=== PATIENT | female | born 1990 | race Caucasian/White ===

== ENCOUNTER 2018-10-23 12:03 | Emergency (ER) | payer SELFPAY ==
--- NOTE | 2018-10-23 13:22 | UC ---
Abdominal Pain Female HPI - HPI Summary HPI Summary: Pt resents with c/o of right side LQ pain,that began 3 days ago. Pt states that abdominal pain began at "bellybutton" ~ 3 days ago and now is painful in RLQ. Pt has hx of ovarian cysts, has nexplanon, denies injury/ Unsure of last BM , states she is "burping" more than usual and is not passing flatus per norm. Pt also reports mild nausea but no vomiting. - History of Current Complaint Chief Complaint: UCAbdominalPain Stated Complaint: RT SIDED ABD PAIN Time Seen by Provider: 10/23/18 13:12 Hx Obtained From: Patient Hx Last Menstrual Period: nexplanon ?: No Onset/Duration: Gradual Onset, Lasting Days, Still Present Timing: Constant Severity Initially: Mild Severity Currently: Severe Pain Intensity: 8 Location: Discrete At: RLQ Radiates: No Aggravating Factor(s): Movement Alleviating Factor(s): Nothing Associated Signs and Symptoms: Positive: Constipation, Nausea - Risk Factors Ectopic Risk Factor: Negative Ovarian Torsion Risk Factor: Reproductive Age, Ovarian Cysts/Tumors Allergies/Adverse Reactions: Allergies Allergy/AdvReac Type Severity Reaction Status Date / Time povidone-iodine Allergy Hives Verified 10/23/18 12:22 [From Betadine] soap [From Betadine] Allergy Hives Verified 10/23/18 12:22 Home Medications: Home Medications Etonogestrel [Nexplanon] 68 mg IMPLANT 10/23/18 [History] PMH/Surg Hx/FS Hx/Imm Hx Previously Healthy: Yes - Surgical History Surgical History: Yes Surgery Procedure, Year, and Place: 3 c-sections, disectomy?, lt oopherectomy and lt salpenjectomy - Family History Known Family History: Positive: Cardiac Disease - Social History Lives: With Family Alcohol Use: None Substance Use Type: None Smoking Status (MU): Never Smoked Tobacco Have You Smoked in the Last Year: No Review of Systems All Other Systems Reviewed And Are Negative: Yes Constitutional: Positive: Negative Skin: Positive: Negative Eyes: Positive: Negative ENT: Positive: Negative Respiratory: Positive: Negative Cardiovascular: Positive: Negative Gastrointestinal: Positive: Abdominal Pain, Nausea Genitourinary: Positive: Negative Motor: Positive: Negative Neurovascular: Positive: Negative Musculoskeletal: Positive: Negative Neurological: Positive: Negative Psychological: Positive: Negative Is Patient Immunocompromised?: No Physical Exam Triage Information Reviewed: Yes Appearance: Pain Distress Vital Signs: Initial Vital Signs Temp 98.8 F 10/23/18 12:16 Pulse 58 10/23/18 12:16 Resp 18 10/23/18 12:16 BP 129/87 10/23/18 12:16 Pulse Ox 97 10/23/18 12:16 Vital Signs Reviewed: Yes Eye Exam: Normal ENT: Positive: Hearing grossly normal Neck exam: Normal Respiratory Exam: Normal Cardiovascular Exam: Normal Abdomen Description: Positive: McBurney's Point Tenderness Bowel Sounds: Positive: Hypoactive Musculoskeletal Exam: Normal Neurological Exam: Normal Psychological Exam: Normal Skin Exam: Normal Abd Pain Female Course/Dx - Course Course Of Treatment: Pt was recommended to go directly to ER by ambulance as pt stated she did not have a ride. Ambulance arrived, and pt declined ambulance and stated that she now had a ride. - Differential Dx/Diagnosis Differential Diagnosis: Appendicitis, Constipation, Ovarian Cyst Provider Diagnosis: Abdominal pain - Physician Notification/Consults Discussed Care of Patient With: Dr. Brown Time Discussed With Above Provider: 14:00 Discharge - Sign-Out/Discharge Documenting (check all that apply): Patient Departure All imaging exams completed and their final reports reviewed: No Studies - Discharge Plan Condition: Stable Disposition: AGAINST MEDICAL ADVICE Patient Education Materials: Abdominal Pain (ED) Referrals: [facility] [Outside] - If Needed No Primary Care Phys,NOPCP [Primary Care Provider] - Additional Instructions: Pt was instructed to go to ER directly by ambulance but pt declined it after it arrived. - Billing Disposition and Condition Condition: STABLE Disposition: Against Medical Advice
== END 2018-10-23 14:02 | disposition left against medical advice (07) ==
LOC: UCEAST 12:03
DX: R10.31 Right lower quadrant pain (principal)
CPT/HCPCS: 99202; G0463